=== PATIENT | female | born 1960 | race African-American/Black ===

== ENCOUNTER 2019-11-22 18:25 | Emergency (ER) | payer MEDICAID, OTHER ==
[~2019-11-22] VITALS: Ht 177.8 cm; Wt 77.0 kg
[2019-11-22 19:00] VITALS: BP 171/95
[2019-11-22] MEDS ORDERED: DIPHENHYDRAMINE 50MG/ML VIAL IV ONE (19:00)
[2019-11-22] MEDS ORDERED: METHYLPREDNISOLONE SOD SUCC 125 MG/2 ML VIAL IV ONE (19:00)
== END 2019-11-22 20:20 | disposition home or self-care (01) ==
LOC: ER 18:25
DX: T78.1XXA Other adverse food reactions, not elsewhere classified, initial encounter (principal); R22.0 Localized swelling, mass and lump, head; X58.XXXA Exposure to other specified factors, initial encounter; I10 Essential (primary) hypertension; Z91.012 Allergy to eggs; Z91.011 Allergy to milk products; Z91.013 Allergy to seafood
CPT/HCPCS: 96374; 96375; 99284; J1200; J2930

== ENCOUNTER 2021-02-20 13:19 | Inpatient (IN) | payer OTHER ==
[~2021-02-20] VITALS: Ht 177.8 cm; Wt 79.8 kg
[2021-02-20 14:07] LABS: BASOPHILS % 1.2 % (0.0-2.0); EOSINOPHILS % 0.4 % (0.0-5.0); HEMATOCRIT. 42.1 % (36.0-48.0); HEMOGLOBIN. 14.2 g/dL (12.0-16.0); LYMPHOCYTES % 26.1 % (20.0-50.0); MEAN CORPUSCULAR HEMOGLOBIN 28.6 pg (28.0-32.0); MEAN PLATELET VOLUME 7.8 fl (7.4-10.4); MONOCYTES % 6.1 % (2.0-8.0); NEUTROPHILS % 66.2 % (40.0-76.0); PLATELET 267 x1000/uL (130-400); RED BLOOD CELL COUNT 4.95 mill/uL (4.2-5.4); RED CELL DISTRIBUTION WIDTH 13.4 % (11.6-14.6)
[2021-02-20 15:21] LABS: CHLORIDE 105 mEq/L (98-107)
[2021-02-20 15:22] LABS: INR 1.1; PROTHROMBIN TIME 11.7 sec (9.6-11.0)
[2021-02-20 15:26] LABS: ETHANOL BLOOD < 10 mg/dL
[2021-02-20] MEDS ORDERED: ACETAMINOPHEN 325MG TABLET PO NR (21:08)
[2021-02-20 21:40] VITALS: BP 189/109
[2021-02-20] MEDS ORDERED: CLONIDINE 0.1MG TABLET PO PRN (23:00)
[2021-02-20] MEDS ORDERED: ACETAMINOPHEN 325MG TABLET PO PRN (23:00)
[2021-02-20] MEDS ORDERED: HYDROCODONE/ACETAMINOPHEN 5/325MG TABLET PO PRN (23:00)
[2021-02-21] VITALS (7 sets, daily range): BP systolic 147–179; BP diastolic 90–107
[2021-02-21] MEDS ORDERED: GABA-529 PO (00:16)
[2021-02-21 07:23] LABS: HEMATOCRIT. 38.2 % (36.0-48.0); HEMOGLOBIN. 12.5 g/dL (12.0-16.0); MEAN CORPUSCULAR HEMOGLOBIN 28.1 pg (28.0-32.0); MEAN CORPUSCULAR VOLUME 85.6 fL (81.0-99.0); RED BLOOD CELL COUNT 4.46 mill/uL (4.2-5.4); RED CELL DISTRIBUTION WIDTH 13.3 % (11.6-14.6)
[2021-02-21 07:27] LABS: CHLORIDE 107 mEq/L (98-107)
[2021-02-21 07:36] LABS: LDL CHOLESTEROL 125 mg/dL (5-100)
[2021-02-21 07:38] LABS: HDL CHOLESTEROL 57 mg/dL (40-59)
[2021-02-21] MEDS: ENOXAPARIN 40MG/0.4ML SYR SUBCUT SCH (08:23)
[2021-02-21] MEDS: CLOPIDOGREL 75MG TABLET PO SCH (08:24)
[2021-02-21] MEDS: AMLODIPINE 10MG TABLET PO SCH (08:24)
[2021-02-21] MEDS ORDERED: HYDRALAZINE HCL 10MG TABLET PO SCH (09:00)
[2021-02-21] MEDS ORDERED: NALOXONE HCL 0.4MG/ML VIAL IV PRN (11:15)
[2021-02-21 11:52] LABS: PLATELET 229 x1000/uL (130-400)
[2021-02-21 11:55] LABS: PLATELET ESTIMATE NORMAL
[2021-02-21] MEDS: HYDRALAZINE HCL 25MG TABLET PO SCH ×2 (14:51→21:17)
[2021-02-21] MEDS: ATORVASTATIN CALCIUM 40MG TABLET PO SCH (21:18)
[2021-02-21] MEDS ORDERED: IOHEXOL-350 100 ML BOTTLE ONE (23:35)
[2021-02-22 04:00] VITALS: BP 132/77
[2021-02-22] MEDS: HYDRALAZINE HCL 25MG TABLET PO SCH ×3 (05:41→21:03)
[2021-02-22 08:00] VITALS: BP 142/82
[2021-02-22] MEDS: ENOXAPARIN 40MG/0.4ML SYR SUBCUT SCH (08:47)
[2021-02-22] MEDS: CLOPIDOGREL 75MG TABLET PO SCH (08:48)
[2021-02-22] MEDS: AMLODIPINE 10MG TABLET PO SCH (08:48)
[2021-02-22 12:00] VITALS: BP 149/88
[2021-02-22 16:00] VITALS: BP 135/80
[2021-02-22 20:00] VITALS: BP 139/77
[2021-02-22] MEDS: ATORVASTATIN CALCIUM 40MG TABLET PO SCH (21:03)
[2021-02-23] VITALS: BP 132/80
[2021-02-23 03:51] VITALS: BP 130/100
[2021-02-23] MEDS: HYDRALAZINE HCL 25MG TABLET PO SCH ×3 (04:42→21:00)
[2021-02-23 08:00] VITALS: BP 130/80
[2021-02-23] MEDS: ENOXAPARIN 40MG/0.4ML SYR SUBCUT SCH (08:43)
[2021-02-23] MEDS: AMLODIPINE 10MG TABLET PO SCH (08:43)
[2021-02-23] MEDS: CLOPIDOGREL 75MG TABLET PO SCH (08:43)
[2021-02-23] MEDS ORDERED: ZOLPIDEM TARTRATE 5MG TABLET PO PRN (11:15)
[2021-02-23] MEDS: DOCUSATE SODIUM 100MG CAPSULE PO SCH ×2 (11:47→16:37)
[2021-02-23 12:00] VITALS: BP 134/84
[2021-02-23 16:00] VITALS: BP 128/81
[2021-02-23 20:00] VITALS: BP 133/79
[2021-02-23] MEDS: ATORVASTATIN CALCIUM 40MG TABLET PO SCH (20:56)
[2021-02-24] VITALS: BP 148/92
[2021-02-24 04:00] VITALS: BP_SYST 142; BP_DIAS 84; BP_DIAS 94
[2021-02-24] MEDS: HYDRALAZINE HCL 25MG TABLET PO SCH ×2 (06:11→13:22)
[2021-02-24 08:00] VITALS: BP 108/80
[2021-02-24] MEDS: CLOPIDOGREL 75MG TABLET PO SCH (08:36)
[2021-02-24] MEDS: DOCUSATE SODIUM 100MG CAPSULE PO SCH ×2 (08:36→16:52)
[2021-02-24] MEDS: ENOXAPARIN 40MG/0.4ML SYR SUBCUT SCH (08:37)
[2021-02-24] MEDS: AMLODIPINE 10MG TABLET PO SCH (08:37)
[2021-02-24 12:00] VITALS: BP 129/99
[2021-02-24 13:36] VITALS: BP_SYST 106; BP_SYST 129; BP_DIAS 69; BP_DIAS 99
[2021-02-24 16:00] VITALS: BP 106/69
== END 2021-02-24 18:15 | DRG 65 ==
LOC: ER 13:19 → 6WST 19:34 → ENRESERV 19:54
PROVIDERS: ADMIT Hospitalist; ATTEND Hospitalist
PROC: 4A10X4Z Monitoring of Central Nervous Electrical Activity, External Approach (ICD-10-PCS; principal; 2021-02-22)
DX: I63.9 Cerebral infarction, unspecified (principal); G81.94 Hemiplegia, unspecified affecting left nondominant side; E78.5 Hyperlipidemia, unspecified; I16.0 Hypertensive urgency; J44.9 Chronic obstructive pulmonary disease, unspecified; I10 Essential (primary) hypertension; R29.810 Facial weakness; R29.702 NIHSS score 2; Z88.8 Allergy status to other drugs, medicaments and biological substances; Z91.012 Allergy to eggs; Z91.013 Allergy to seafood; Z82.49 Family history of ischemic heart disease and other diseases of the circulatory system
CPT/HCPCS: 36415; 70496; 70498; 70551; 71045; 80053; 80061; 80320; 82962; 84484; 85025; 93005; 93306; 93880; 93970; 95816; 97162; 97166; 99285; J1650; Q9967; G0480

== ENCOUNTER 2021-02-24 18:25 | Inpatient (IN) | payer OTHER ==
[~2021-02-24] VITALS: Ht 177.8 cm; Wt 79.8 kg
[~2021-02-24 18:25] MED LIST: GABA-529 PO
[2021-02-24 18:30] VITALS: BP 129/80
[2021-02-24] MEDS ORDERED: HYDROCODONE/ACETAMINOPHEN 5/325MG TABLET PO PRN (19:45)
[2021-02-24] MEDS ORDERED: ZOLPIDEM TARTRATE 5MG TABLET PO PRN (19:45)
[2021-02-24] MEDS ORDERED: NALOXONE HCL 0.4 MG/ML 1ML VIAL IV PRN (19:45)
[2021-02-24 20:00] VITALS: BP 156/85
[2021-02-24] MEDS ORDERED: CLONIDINE 0.1MG TABLET PO PRN (20:00)
[2021-02-24] MEDS: ATORVASTATIN CALCIUM 40MG TABLET PO SCH (21:42)
[2021-02-24] MEDS: HYDRALAZINE HCL 25MG TABLET PO SCH (21:42)
[2021-02-24] MEDS ORDERED: CLONIDINE 0.1MG TABLET PO SCH (22:00)
[2021-02-25] MEDS: BISACODYL 5MG TABLET PO PRN (05:19)
[2021-02-25] MEDS: HYDRALAZINE HCL 25MG TABLET PO SCH (05:20)
[2021-02-25] MEDS: LACTULOSE 20G/30ML UDC PO PRN (05:20)
[2021-02-25 08:00] VITALS: BP 148/100
[2021-02-25] MEDS: AMLODIPINE 10MG TABLET PO SCH (09:30)
[2021-02-25] MEDS: ENOXAPARIN 40MG/0.4ML SYR SUBCUT SCH (09:30)
[2021-02-25] MEDS: CLOPIDOGREL 75MG TABLET PO SCH (09:31)
[2021-02-25] MEDS: DOCUSATE SODIUM 100MG CAPSULE PO SCH ×2 (09:31→17:43)
[2021-02-25] MEDS: ACETAMINOPHEN 325MG TABLET PO PRN (11:36)
[2021-02-25] MEDS: HYDRALAZINE HCL 50MG TABLET PO SCH ×2 (14:38→21:34)
[2021-02-25 20:00] VITALS: BP 148/91
[2021-02-25] MEDS: ATORVASTATIN CALCIUM 40MG TABLET PO SCH (21:34)
[2021-02-26] MEDS: HYDRALAZINE HCL 50MG TABLET PO SCH ×3 (06:40→23:14)
[2021-02-26 08:00] VITALS: BP 129/81
[2021-02-26] MEDS: CLOPIDOGREL 75MG TABLET PO SCH (09:38)
[2021-02-26] MEDS: ENOXAPARIN 40MG/0.4ML SYR SUBCUT SCH (09:38)
[2021-02-26] MEDS: DOCUSATE SODIUM 100MG CAPSULE PO SCH ×2 (09:38→17:53)
[2021-02-26] MEDS: AMLODIPINE 10MG TABLET PO SCH (09:38)
[2021-02-26 20:00] VITALS: BP 130/85
[2021-02-26] MEDS: ATORVASTATIN CALCIUM 40MG TABLET PO SCH (23:14)
[2021-02-27] MEDS: HYDRALAZINE HCL 50MG TABLET PO SCH ×3 (06:31→21:00)
[2021-02-27 08:00] VITALS: BP 100/71
[2021-02-27] MEDS: CLOPIDOGREL 75MG TABLET PO SCH (08:32)
[2021-02-27] MEDS: AMLODIPINE 10MG TABLET PO SCH (08:33)
[2021-02-27] MEDS: DOCUSATE SODIUM 100MG CAPSULE PO SCH ×2 (08:33→16:37)
[2021-02-27] MEDS: ENOXAPARIN 40MG/0.4ML SYR SUBCUT SCH (08:34)
[2021-02-27] MEDS: BISACODYL 5MG TABLET PO PRN (15:26)
[2021-02-27 20:00] VITALS: BP 139/85
[2021-02-27] MEDS: ATORVASTATIN CALCIUM 40MG TABLET PO SCH (21:00)
[2021-02-28] MEDS: HYDRALAZINE HCL 50MG TABLET PO SCH ×3 (05:48→21:50)
[2021-02-28 07:17] LABS: BASOPHILS % 1.1 % (0.0-2.0); EOSINOPHILS % 1.5 % (0.0-5.0); HEMATOCRIT. 40.2 % (36.0-48.0); HEMOGLOBIN. 13.3 g/dL (12.0-16.0); LYMPHOCYTES % 32.8 % (20.0-50.0); MEAN CORPUSCULAR HEMOGLOBIN 28.2 pg (28.0-32.0); MEAN CORPUSCULAR VOLUME 85.3 fL (81.0-99.0); MEAN PLATELET VOLUME 7.8 fl (7.4-10.4); MONOCYTES % 10.6 % (2.0-8.0); PLATELET 264 x1000/uL (130-400); RED BLOOD CELL COUNT 4.71 mill/uL (4.2-5.4); RED CELL DISTRIBUTION WIDTH 13.4 % (11.6-14.6)
[2021-02-28 07:27] LABS: CHLORIDE 108 mEq/L (98-107)
[2021-02-28 08:21] VITALS: BP 140/62
[2021-02-28] MEDS: CLOPIDOGREL 75MG TABLET PO SCH (09:56)
[2021-02-28] MEDS: BISACODYL 5MG TABLET PO PRN (09:57)
[2021-02-28] MEDS: AMLODIPINE 10MG TABLET PO SCH (09:57)
[2021-02-28] MEDS: ENOXAPARIN 40MG/0.4ML SYR SUBCUT SCH (09:58)
[2021-02-28] MEDS: DOCUSATE SODIUM 100MG CAPSULE PO SCH ×2 (09:59→17:00)
[2021-02-28] MEDS: ATORVASTATIN CALCIUM 40MG TABLET PO SCH (21:50)
[2021-03-01] MEDS: HYDRALAZINE HCL 50MG TABLET PO SCH ×3 (06:00→21:53)
[2021-03-01] MEDS: LACTULOSE 20G/30ML UDC PO PRN (10:12)
[2021-03-01] MEDS: CLOPIDOGREL 75MG TABLET PO SCH (10:12)
[2021-03-01] MEDS: AMLODIPINE 10MG TABLET PO SCH (10:12)
[2021-03-01] MEDS: DOCUSATE SODIUM 100MG CAPSULE PO SCH ×2 (10:12→18:06)
[2021-03-01] MEDS: ENOXAPARIN 40MG/0.4ML SYR SUBCUT SCH (10:12)
[2021-03-01 20:00] VITALS: BP 150/81
[2021-03-01] MEDS: ATORVASTATIN CALCIUM 40MG TABLET PO SCH (21:53)
[2021-03-02] MEDS ORDERED: HYDROCODONE/ACETAMINOPHEN 5/325MG TABLET PO PRN (01:00)
[2021-03-02] MEDS ORDERED: NALOXONE HCL 0.4 MG/ML 1ML VIAL IV PRN (01:15)
[2021-03-02] MEDS: HYDRALAZINE HCL 50MG TABLET PO SCH ×3 (05:00→21:19)
[2021-03-02 07:54] VITALS: BP 126/77
[2021-03-02] MEDS: CLOPIDOGREL 75MG TABLET PO SCH (09:19)
[2021-03-02] MEDS: DOCUSATE SODIUM 100MG CAPSULE PO SCH ×2 (09:19→16:28)
[2021-03-02] MEDS: AMLODIPINE 10MG TABLET PO SCH (09:20)
[2021-03-02] MEDS: ENOXAPARIN 40MG/0.4ML SYR SUBCUT SCH (09:21)
[2021-03-02] MEDS: ACETAMINOPHEN 325MG TABLET PO PRN (16:28)
[2021-03-02 20:00] VITALS: BP 138/93
[2021-03-02] MEDS: ATORVASTATIN CALCIUM 40MG TABLET PO SCH (21:19)
[2021-03-03] MEDS: BISACODYL 5MG TABLET PO PRN (05:41)
[2021-03-03] MEDS: HYDRALAZINE HCL 50MG TABLET PO SCH ×3 (05:41→21:02)
[2021-03-03 08:15] VITALS: BP 114/88
[2021-03-03] MEDS: ENOXAPARIN 40MG/0.4ML SYR SUBCUT SCH (09:39)
[2021-03-03] MEDS: DOCUSATE SODIUM 100MG CAPSULE PO SCH ×2 (09:40→17:45)
[2021-03-03] MEDS: CLOPIDOGREL 75MG TABLET PO SCH (09:40)
[2021-03-03] MEDS: AMLODIPINE 10MG TABLET PO SCH (09:40)
[2021-03-03 15:47] VITALS: BP 96/67
[2021-03-03 20:00] VITALS: BP 118/74
[2021-03-03] MEDS: ATORVASTATIN CALCIUM 40MG TABLET PO SCH (20:08)
[2021-03-04] MEDS: BISACODYL 5MG TABLET PO PRN (05:48)
[2021-03-04] MEDS: HYDRALAZINE HCL 50MG TABLET PO SCH ×3 (05:48→21:10)
[2021-03-04 08:00] VITALS: BP 106/75
[2021-03-04] MEDS: AMLODIPINE 10MG TABLET PO SCH (08:49)
[2021-03-04] MEDS: CLOPIDOGREL 75MG TABLET PO SCH (08:49)
[2021-03-04] MEDS: DOCUSATE SODIUM 100MG CAPSULE PO SCH ×2 (08:49→16:44)
[2021-03-04] MEDS: ENOXAPARIN 40MG/0.4ML SYR SUBCUT SCH (08:49)
[2021-03-04] MEDS ORDERED: ZOLPIDEM TARTRATE 5MG TABLET PO PRN (17:45)
[2021-03-04 20:00] VITALS: BP 151/87
[2021-03-04] MEDS: ATORVASTATIN CALCIUM 40MG TABLET PO SCH (21:10)
[2021-03-05] MEDS: HYDRALAZINE HCL 50MG TABLET PO SCH ×3 (06:19→21:16)
[2021-03-05 08:00] VITALS: BP 123/82
[2021-03-05] MEDS: ENOXAPARIN 40MG/0.4ML SYR SUBCUT SCH (09:00)
[2021-03-05] MEDS: CLOPIDOGREL 75MG TABLET PO SCH (09:03)
[2021-03-05] MEDS: DOCUSATE SODIUM 100MG CAPSULE PO SCH ×2 (09:04→17:51)
[2021-03-05] MEDS: AMLODIPINE 5MG TABLET PO SCH (09:05)
[2021-03-05 20:00] VITALS: BP 134/85
[2021-03-05] MEDS: ATORVASTATIN CALCIUM 40MG TABLET PO SCH (21:16)
[2021-03-06] MEDS: HYDRALAZINE HCL 50MG TABLET PO SCH ×3 (05:31→21:41)
[2021-03-06 06:58] LABS: HEMATOCRIT. 37.8 % (36.0-48.0); HEMOGLOBIN. 12.7 g/dL (12.0-16.0); MEAN CORPUSCULAR HEMOGLOBIN 28.6 pg (28.0-32.0); MEAN CORPUSCULAR VOLUME 84.9 fL (81.0-99.0); MEAN PLATELET VOLUME 7.7 fl (7.4-10.4); PLATELET 266 x1000/uL (130-400); RED BLOOD CELL COUNT 4.46 mill/uL (4.2-5.4); RED CELL DISTRIBUTION WIDTH 13.1 % (11.6-14.6)
[2021-03-06 07:17] LABS: CHLORIDE 109 mEq/L (98-107)
[2021-03-06] MEDS: BISACODYL 5MG TABLET PO PRN (08:35)
[2021-03-06] MEDS: CLOPIDOGREL 75MG TABLET PO SCH (08:36)
[2021-03-06] MEDS: AMLODIPINE 5MG TABLET PO SCH (08:36)
[2021-03-06] MEDS: ENOXAPARIN 40MG/0.4ML SYR SUBCUT SCH (08:37)
[2021-03-06] MEDS: DOCUSATE SODIUM 100MG CAPSULE PO SCH ×2 (11:34→17:36)
[2021-03-06] MEDS: LACTULOSE 20G/30ML UDC PO PRN (17:59)
[2021-03-06 20:00] VITALS: BP 138/80
[2021-03-06 21:16] LABS: PLATELET ESTIMATE NORMAL
[2021-03-06] MEDS: ATORVASTATIN CALCIUM 40MG TABLET PO SCH (21:41)
[2021-03-07] MEDS: HYDRALAZINE HCL 50MG TABLET PO SCH ×3 (06:14→21:00)
[2021-03-07 08:00] VITALS: BP 111/62
[2021-03-07] MEDS: DOCUSATE SODIUM 100MG CAPSULE PO SCH ×2 (08:53→17:34)
[2021-03-07] MEDS: CLOPIDOGREL 75MG TABLET PO SCH (08:53)
[2021-03-07] MEDS: ENOXAPARIN 40MG/0.4ML SYR SUBCUT SCH (08:53)
[2021-03-07] MEDS: AMLODIPINE 5MG TABLET PO SCH (08:53)
[2021-03-07 20:00] VITALS: BP 116/78
[2021-03-07] MEDS: ATORVASTATIN CALCIUM 40MG TABLET PO SCH (21:00)
[2021-03-08] MEDS: HYDRALAZINE HCL 50MG TABLET PO SCH ×3 (06:18→21:28)
[2021-03-08 08:00] VITALS: BP 119/72
[2021-03-08] MEDS: DOCUSATE SODIUM 100MG CAPSULE PO SCH ×2 (08:04→17:02)
[2021-03-08] MEDS: AMLODIPINE 5MG TABLET PO SCH (08:05)
[2021-03-08] MEDS: ENOXAPARIN 40MG/0.4ML SYR SUBCUT SCH (08:05)
[2021-03-08] MEDS: CLOPIDOGREL 75MG TABLET PO SCH (08:05)
[2021-03-08 20:00] VITALS: BP 129/86
[2021-03-08] MEDS: ATORVASTATIN CALCIUM 40MG TABLET PO SCH (21:29)
[2021-03-09] MEDS: HYDRALAZINE HCL 50MG TABLET PO SCH ×3 (05:25→21:00)
[2021-03-09 08:00] VITALS: BP 116/74
[2021-03-09] MEDS: CLOPIDOGREL 75MG TABLET PO SCH (09:20)
[2021-03-09] MEDS: AMLODIPINE 5MG TABLET PO SCH (09:20)
[2021-03-09] MEDS: ENOXAPARIN 40MG/0.4ML SYR SUBCUT SCH (09:21)
[2021-03-09] MEDS: DOCUSATE SODIUM 100MG CAPSULE PO SCH ×2 (09:23→17:30)
[2021-03-09 20:00] VITALS: BP 138/84
[2021-03-09] MEDS: ATORVASTATIN CALCIUM 40MG TABLET PO SCH (20:40)
[2021-03-10] MEDS: HYDRALAZINE HCL 50MG TABLET PO SCH ×3 (05:13→21:00)
[2021-03-10] MEDS: BISACODYL 5MG TABLET PO PRN (05:13)
[2021-03-10 08:00] VITALS: BP 126/74
[2021-03-10] MEDS ORDERED: AMLO5TAB4 PO (09:27)
[2021-03-10] MEDS ORDERED: HYDR-4135 PO (09:28)
[2021-03-10] MEDS ORDERED: SENN-257 PO (09:29)
[2021-03-10] MEDS ORDERED: LIP40 MT (09:30)
[2021-03-10] MEDS ORDERED: FAMO-135 MT (09:30)
[2021-03-10] MEDS ORDERED: CLOP-31 PO (09:32)
[2021-03-10] MEDS: AMLODIPINE 5MG TABLET PO SCH (10:22)
[2021-03-10] MEDS: DOCUSATE SODIUM 100MG CAPSULE PO SCH ×2 (10:22→16:22)
[2021-03-10] MEDS: CLOPIDOGREL 75MG TABLET PO SCH (10:23)
[2021-03-10] MEDS: ENOXAPARIN 40MG/0.4ML SYR SUBCUT SCH (10:23)
[2021-03-10 20:00] VITALS: BP 126/80
[2021-03-10] MEDS: ATORVASTATIN CALCIUM 40MG TABLET PO SCH (20:32)
[2021-03-11] MEDS: HYDRALAZINE HCL 50MG TABLET PO SCH ×2 (05:43→13:19)
[2021-03-11 08:00] VITALS: BP 89/57
[2021-03-11] MEDS: CLOPIDOGREL 75MG TABLET PO SCH (08:54)
[2021-03-11] MEDS: DOCUSATE SODIUM 100MG CAPSULE PO SCH (08:54)
[2021-03-11] MEDS: ENOXAPARIN 40MG/0.4ML SYR SUBCUT SCH (08:55)
[2021-03-11] MEDS: AMLODIPINE 5MG TABLET PO SCH (08:59)
[2021-03-11 09:36] VITALS: BP 89/52
[2021-03-11 10:00] VITALS: BP 98/56
[2021-03-11 12:01] VITALS: BP 117/73
[2021-03-11 12:54] VITALS: BP 117/73
== END 2021-03-11 16:20 | disposition home health service (06) | DRG 56 ==
PROVIDERS: ADMIT Psychiatry & Neurology Neurology; ATTEND Hospitalist
DX: I69.354 Hemiplegia and hemiparesis following cerebral infarction affecting left non-dominant side (principal); I63.511 Cerebral infarction due to unspecified occlusion or stenosis of right middle cerebral artery; I47.1 Supraventricular tachycardia; E78.5 Hyperlipidemia, unspecified; I10 Essential (primary) hypertension; I16.0 Hypertensive urgency; R29.810 Facial weakness; R26.9 Unspecified abnormalities of gait and mobility; F32.A Depression, unspecified; F41.9 Anxiety disorder, unspecified; Z79.899 Other long term (current) drug therapy; Z79.02 Long term (current) use of antithrombotics/antiplatelets; Z91.018 Allergy to other foods; Z91.02 Food additives allergy status; Z91.012 Allergy to eggs; Z91.011 Allergy to milk products
CPT/HCPCS: 36415; 80048; 85025; 92523; 92610; 93970; 97110; 97112; 97116; 97163; 97166; 97530; 97535; J1650